=== PATIENT | female | born 1955 | race Caucasian/White ===

== ENCOUNTER → 2024-05-16 | Outpatient (CLI) | payer OTHER, MEDICAID, SELFPAY ==
[2024-05-16 17:52] LABS: BVAG Candida Negative (Negative); Bacterial Vaginosis Markers Negative (Negative); Candida glabrata Negative (Negative); Candida krusei PCR Negative (Negative); Trichomonas Negative (Negative)
== END | disposition home or self-care (01) ==
LOC: SLDO 11:49
PROVIDERS: Referring Provider Specialist; Visit Provider Specialist
DX: B37.89 Other sites of candidiasis (principal); N76.0 Acute vaginitis; A59.01 Trichomonal vulvovaginitis
CPT/HCPCS: 81514

== ENCOUNTER 2024-05-17 13:19 | Outpatient (RCR) | payer OTHER, MEDICAID, SELFPAY | END 2024-05-26 23:59 | disposition home or self-care (01) | LOC: SCTC 13:19 | PROVIDERS: PCP Family Medicine; Referring Provider Family Medicine; Visit Provider Nurse Practitioner Family | DX: Z08 Encounter for follow-up examination after completed treatment for malignant neoplasm (principal); Z85.3 Personal history of malignant neoplasm of breast; Z92.3 Personal history of irradiation; Z92.21 Personal history of antineoplastic chemotherapy; N60.92 Unspecified benign mammary dysplasia of left breast; R91.1 Solitary pulmonary nodule; Z87.891 Personal history of nicotine dependence; I10 Essential (primary) hypertension; Z86.59 Personal history of other mental and behavioral disorders | CPT/HCPCS: 99212; G0463 ==

== ENCOUNTER → 2024-08-29 | Outpatient (CLI) | payer OTHER, MEDICAID, SELFPAY ==
[2024-08-29 13:59] LABS: Collection Type, Urine Clean Catch
[2024-08-29 14:27] LABS: Basophils # (Auto) 0.1 Thou/mm3 (0.0-0.2); Basophils % (Auto) 2 % (0-2.5); Eosinophils # (Auto) 0.4 Thou/mm3 (0.0-0.5); Eosinophils % (Auto) 5 % (0-10); Hematocrit 47.8 % (36.0-46.0); Hemoglobin 16.1 g/dL (12.0-16.0); Immature Granulocytes % (Auto) 0 % (0-0); Immature Granulocytes Auto 0.02 Thou/mm3 (0.00-0.00); Lymphocytes # (Auto) 1.7 Thou/mm3 (1.0-4.8); Lymphocytes % (Auto) 22 % (10-50); Mean Corpuscular HGB Conc 33.7 g/dl (31.0-37.0); Mean Corpuscular Hemoglobin 30.3 pg (25.0-35.0); Mean Corpuscular Volume 90 fL (80-100); Monocytes # (Auto) 0.5 Thou/mm3 (0.0-0.8); Monocytes % (Auto) 7 % (0-12); Neutrophils # (Auto) 4.9 Thou/mm3 (1.8-7.7); Neutrophils % (Auto) 64 % (37-80); Nucleated Red Blood Cell % 0 /100 WBC (0); Platelet Count 210 Thou/mm3 (140-440); RDW Standard Deviation 41.4 fL (36.4-46.3); Red Blood Count 5.31 Miln/mm3 (4.00-5.20); White Blood Count 7.5 Thou/mm3 (3.6-11.0)
[2024-08-29 14:31] LABS: Bilirubin,Urine Negative (Negative); Blood,Urine Negative (Negative); Clarity,Urine Clear (Clear/Hazy); Color,Urine Lt-Yellow (Lt Yel-Yel); Culture Indicated,Urine Not Indicated; Glucose, Urine Negative (Negative); Ketones,Urine Negative (Negative); Leukocyte Esterase,Urine Positive (Negative); Nitrite,Urine Negative (Negative); PH,Urine 5.5 (5.0-7.0); Protein,Urine Negative (Neg - Trace); RBC,Urine 2 /hpf (0-3); Specific Gravity,Urine 1.021 (1.001-1.035); Squamous Epithelial Cell,Urine 1 /hpf (0-5); Urobilinogen,Urine Negative mg/dL (0.0-1.0); WBC,Urine 2 /hpf (0-5)
[2024-08-29 14:55] LABS: Vitamin B12 619 pg/mL (211-911)
[2024-08-29 15:25] LABS: Glucose Estimated Average 97 mg/dL (80-131)
[2024-08-29 15:29] LABS: Iron 155 mcg/dL (50-170); Percent Iron Saturation 47 % (20-55); Total Iron Binding Capacity 324 mcg/dL (250-425); Unsaturated Iron Binding 169 (225-295)
[2024-08-29 15:30] LABS: Alanine Aminotransferase 127 U/L (10-49); Albumin, Serum 4.5 gm/dL (3.4-4.8); Albumin/Globulin Ratio 2.4 (1.2-2.2); Alkaline Phosphatase 147 U/L (46-116); Anion Gap 5 (7-16); Aspartate Amino Transferase 120 U/L (0-34); BUN/Creatinine Ratio 16 Ratio (12-20); Blood Urea Nitrogen 14 mg/dL (9-23); Calcium 10.3 mg/dL (8.3-10.6); Calcium (Corrected) 10.3 mg/dL (8.5-10.1); Carbon Dioxide 30.9 mMol/L (20.0-31.0); Cardiac Risk Estimate 3.6 RATIO (3.7-5.6); Chloride 108 mMol/L (98-107); Cholesterol 225 mg/dL (132-200); Creatinine (Component) 0.9 mg/dL (0.6-1.3); Globulin 1.9 gm/dL (2.3-3.5); Glucose 95 mg/dL (74-106); HDL Cholesterol 62 mg/dL (40-60); LDL Cholesterol,Calculated 135 mg/dL (0-130); Osmolality,Calculated 287 (275-295); Potassium 5.2 mMol/L (3.4-5.1); Sodium 144 mMol/L (136-145); Thyroid Stimulating Hormone 1.95 uIU/mL (0.55-4.78); Total Protein 6.4 gm/dL (5.7-8.2); Triglycerides 140 mg/dL (30-150); eGFR > 60 See Note
== END | disposition home or self-care (01) ==
LOC: COPL 13:14
PROVIDERS: PCP Family Medicine; Referring Provider Nurse Practitioner Family; Visit Provider Registered Nurse
DX: Z00.00 Encounter for general adult medical examination without abnormal findings (principal); C50.512 Malignant neoplasm of lower-outer quadrant of left female breast; C50.112 Malignant neoplasm of central portion of left female breast; I10 Essential (primary) hypertension; R53.82 Chronic fatigue, unspecified; D72.819 Decreased white blood cell count, unspecified
CPT/HCPCS: 36415; 80053; 80061; 81001; 82306; 82607; 83036; 83540; 83550; 84443; 85025

== ENCOUNTER → 2024-09-03 | Outpatient (CLI) | payer OTHER, MEDICAID, SELFPAY ==
[2024-09-07 06:40] LABS: Fecal Globin Result DETECTED (NOT DETECTED)
== END | disposition home or self-care (01) ==
LOC: SLDO 13:45
PROVIDERS: PCP Registered Nurse; Referring Provider Registered Nurse; Visit Provider Registered Nurse
DX: Z12.11 Encounter for screening for malignant neoplasm of colon (principal)
CPT/HCPCS: 82274; G0328

== ENCOUNTER → 2024-09-03 | Outpatient (CLI) | payer OTHER, MEDICAID, SELFPAY ==
--- NOTE | 2024-09-03 13:15 | XR_ITS ---
Examination: Diagnostic digital mammography, unilateral, left Computer aided detection 3-D breast Tomosynthesis, unilateral Date and time of exam: 09/03/2024, 12:59 PM Comparisons: July 2013 through March 2024 Indications: six-month follow-up left focal asymmetry Technique: Nonmagnified MLO, CC views of the left breast have been obtained, reconstructed from 3-D Tomosynthesis images. R2 computer aided detection program utilized for evaluation of suspicious masses and/or abnormal calcifications. 3-D Tomosynthesis images obtained. Technologist: Findings: The breasts are heterogeneously dense, which may obscure small masses. Stable postoperative changes in the left breast. The previously described abnormality does not persist on spot compression views and represents superimposition of normal fibroglandular tissue. No evidence of abnormal masses or suspicious calcifications. Impression: BI-RADS category 1: Negative findings (within normal) Recommend 1 year follow-up mammogram
== END | disposition home or self-care (01) ==
PROVIDERS: PCP Family Medicine; Referring Provider Surgery; Visit Provider Surgery
DX: R92.312 Mammographic fatty tissue density, left breast (principal)
CPT/HCPCS: 77061; 77065; G0279

== ENCOUNTER 2024-09-12 13:02 | Outpatient (RCR) | payer OTHER, MEDICAID, SELFPAY ==
--- NOTE | 2024-10-01 00:39 | CTCFLWUP_ITS ---
Patient: {Patient.NameLPINEDA} : {Admin.Birth_Date} MRN: {Ident.MARSHA} Page 2 of 9 FOLLOW UP NOTE DATE OF SERVICE: 09/12/2024 NAME: {Biju} MRN: {Moira.MARSHA} ACCOUNT: [id number] : {Admin.Birth_Date} AGE: {Admin.Age} INTERVAL HISTORY: Patient is concerned for pain and palpable lesion in the left breast. Patient recently had a mammogram which was negative. 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 She took adjuvant capecitabine for a few months and stopped taking it. 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 S/p ultrasound-guided biopsy (09/10/2021) BRCA 1 and 2 negative. REASON FOR TODAY?S VISIT: This is office follow-up visit. Malignant neoplasm of central portion of left female breast [ICD10] C50.112 DATE OF DIAGNOSIS: 09/03/2021 PATHOLOGY: Triple negative breast cancer STAGE/TNM: Stage I left breast cancer TREATMENT HISTORY: Care?Plan Start?Date Cycle Day Intent DOCEtaxel?75,?Cyclophosphamide?600 03/10/2022 1 21 Curative?(adjuvant) HISTORY OF PRESENT ILLNESS: Ms. Mckinnon is here at [facility]. She is clinically doing well. Left breast ultrasound was negative, 6-month follow-up left mammogram recommended, 04/03/2024. CT of chest done on 02/14/2024 showed stable 13 mm pulmonary nodule left upper lobe, no new pulmonary nodules. Smoking history of 20 years. Denies any complaints or concerns. Denies any cough, chest pain. Ambulating well without any help. Has good appetite and good energy levels. HISTORY: Francoise Mckinnon is a 69-year-old ENG speaking female with history of hypertension as well as depression has the following oncology history. 08/31/2019: Patient had bilateral breast ultrasound for a palpable lump in the upper outer quadrant of the right breast. 02/13/2021: Ms. Mckinnon had repeat bilateral breast ultrasounds? 05/15/2021: Bilateral screening mammograms? 08/24/2021: Repeat bilateral breast ultrasounds showed suspicious mass in the left breast 09/10/2021: Ms. Mckinnon had a left breast biopsy 09/23/2021: Bilateral breast MRI with and without contrast? 10/02/2021: BRCA 1 and 2 negative 12/24/2021: Ms. Mckinnon had lumpectomy and sentinel lymph node biopsy of the left breast lesion? 02/08/2022: 03/10/2022?05/12/2022: The patient is treated with 4 cycles of adjuvant TC chemotherapy. 06/16/2022 - 08/06/2022: Ms. Mckinnon received 6300 cGy radiation therapy to the left breast. 09/25/2023: CT scan of the chest with IV contrast showed 13 mm noncalcified pulmonary nodule in the left upper lobe 01/12/2024: Chest x-ray again showed a 13 mm pulmonary nodule in the left upper lobe. 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 Tobacco?Pack?per?Day:?1 Tobacco?Use?Years:?25 Tobacco?Use:?Quit?20yrs?ago ETOH?Use:?Rarely Drug?Note:?Denies Social?History?Note:?Lives?with?family [place] [facility] HISTORY: Menarche?-?Age:?12 Menopause:?Age?54 :?1 Live?Births:?1 Age?1st?:?25 MEDICATIONS: 1. escitalopram oxalate - 5 mg 1 tab Daily 2. Gas Relief (simethicone) - 125 mg tab As needed 3. loratadine - 10 mg 1 tab Daily 4. Pepcid - 20 mg 1 tab Daily Medications Last Reconciled by Daya Aguirre MA on 09/12/2024 ALLERGIES: Latex, Natural Rubber REVIEW OF SYSTEMS: A complete 14-point review of systems was performed and is negative except as noted in interval history. PHYSICAL EXAMINATION: VITAL SIGNS: Temperature?98.6, B/P?154/88, Oxygen?Saturation?93% Weight?171?lbs PAIN: 0 - No pain ECOG Performance Status: 0 - Asymptomatic and fully active GENERAL APPEARANCE: Appears well, in no apparent distress, appropriately interactive. HEENT: Normocephalic, no temporal wasting, normal conjunctiva, no scleral icterus, normal hearing, lips without lesions, neck normal range of motion. CARDIOVASCULAR: Not assessed. PULMONARY: Normal respiratory effort, no respiratory distress or use of accessory muscles, speaking in full sentences, no tachypnea. EXTREMITIES: No pedal edema or cyanosis. SKIN: Normal skin appearance. NEUROLOGIC: Alert and oriented x4. PSHYCHIATRIC: Appropriate affect, mood normal, behavior normal, intact thought and speech. LABORATORY DATA: I have personally reviewed and interpreted each of the patient?s relevant lab tests, abnormal findings are below: Date 04/06/24 08/29/24 ??WHITE?BLOOD?COUNT?(Thou/mm3) ? 7.5 ??RED?BLOOD?COUNT?(Miln/mm3) ? 5.31?H ??HEMOGLOBIN?(gm/dl) ? 16.1?H ??HEMATOCRIT?(%) ? 47.8?H ??PLATELET?COUNT?(Thou/mm3) ? 210 ??NEUTROPHILS?%,?AUTO?(%) ? 64 ??LYMPH?%,?AUTO?(%) ? 22 ??NEUTROPHILS,?AUTO?(Thou/mm3) ? 4.9 ??GLUCOSE,RANDOM?(mg/dL) ? 95 ??BLOOD?UREA?NITROGEN?(mg/dL) ? 14 ??CREATININE?(mg/dL) ? 0.90 ??SODIUM?(mmol/L) ? 144 ??POTASSIUM?(mmol/L) ? 5.2?H ??CHLORIDE?(mmol/L) ? 108?H ??CrCl?(CandG)?(ml/min) ? 55.72 ??AST/SGOT?(Unit/L) 240?H 120?H ??ALT/SGPT?(Unit/L) 244?H 127?H ??ALKALINE?PHOSPHATASE?(Unit/L) 205?H 147?H ??BILIRUBIN,?TOTAL?(mg/dL) 1.0 1.0 ??PROTEIN?TOTAL?(gm/dl) 6.6 6.4 ??ALBUMIN,?SERUM?(gm/dl) 4.5 4.5 ??GLOBULIN?(gm/dl) ? 1.9?L ??ALBUMIN/GLOBULIN?RATIO ? 2.4?H ??CALCIUM,?SERUM?(mg/dL) ? 10.3 ??CALCIUM?SERUM?(CORRECTED)?(mg/dL) ? 10.3?H ??TOTAL?IRON?BINDING?CAP?(S*)?(mcg/dL) ? 324 ??UNBOUND?IBC?(mcg/dL) ? 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 S/p lumpectomy and sentinel lymph node biopsy (12/24/2021 no residual invasive carcinoma in the surgical pathology specimen S/p adjuvant radiation therapy to the left breast (06/16/2022 - 08/06/2022) S/p 4 cycles of TC chemotherapy (03/10/2022-05/12/2022). She took adjuvant capecitabine for a few months and stopped taking it. 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 S/p ultrasound-guided biopsy (09/10/2021) Atypical ductal hyperplasia of the right breast, s/p right breast vertical mammoplasty for cosmetic outcome ORDERS: Order # Description [id number] Initial PET/CT of Skull to Mid-Thigh [id number] Comprehensive Metabolic Panel - 12 + CBC with Auto Diff + CEA + CA 15-3 [id number] MD Follow Up 4 Week [id number] MRI + With Contrast [id number] Will get PET CT scan to evaluate for recurrence Will get MRI liver as have transaminitis. Patient does not take any kind of drugs including alcohol will get MRD testing for Residual breast cancer or recurrence RETURN TO CLINIC: 4 weeks BILLING AND COMPLIANCE: I reviewed external records from providers outside my specialty as summarized above. I spent a total of 50 minutes on this patient?s care on the day of their visit excluding time spent related to any billed procedures. This time includes time spent with the patient as well as time spent documenting in the medical record, reviewing patients records and tests, obtaining history, placing orders, communicating with other healthcare professionals, counseling the patient, family or caregiver, and/or care coordination for the diagnoses above. Electronically Signed by: Cedric Rubio MD T: 12:36 AM CC: PCP: {Admin.Pri__ID*[email or web address]@} Referring: {Admin.Ref_MD_ID*[email or web address]@} This document was completed utilizing speech recognition software. Grammatical errors, random word insertions, pronoun errors, and incomplete sentences are an occasional consequence of this system due to software limitations, ambient noise, and hardware issues. Any formal questions or concerns about the content, text or information contained within the body of this dictation should be directly addressed to the provider for clarification.
== END 2024-09-24 23:59 | disposition home or self-care (01) ==
LOC: SCTC 13:02
PROVIDERS: PCP Registered Nurse; Referring Provider Registered Nurse; Visit Provider Internal Medicine Hematology & Oncology
DX: C50.512 Malignant neoplasm of lower-outer quadrant of left female breast (principal); Z17.421 Hormone receptor negative with human epidermal growth factor receptor 2 negative status; Z90.12 Acquired absence of left breast and nipple; N60.91 Unspecified benign mammary dysplasia of right breast; Z92.3 Personal history of irradiation
CPT/HCPCS: 99212; G0463

== ENCOUNTER → 2024-10-18 | Outpatient (CLI) | payer OTHER, MEDICAID, SELFPAY ==
[2024-10-18 10:50] LABS: Basophils # (Auto) 0.1 Thou/mm3 (0.0-0.2); Basophils % (Auto) 2 % (0-2.5); Eosinophils # (Auto) 0.3 Thou/mm3 (0.0-0.5); Eosinophils % (Auto) 4 % (0-10); Hematocrit 48.5 % (36.0-46.0); Hemoglobin 16.6 g/dL (12.0-16.0); Immature Granulocytes % (Auto) 0 % (0-0); Immature Granulocytes Auto 0.02 Thou/mm3 (0.00-0.00); Lymphocytes # (Auto) 1.5 Thou/mm3 (1.0-4.8); Lymphocytes % (Auto) 21 % (10-50); Mean Corpuscular HGB Conc 34.2 g/dl (31.0-37.0); Mean Corpuscular Hemoglobin 30.8 pg (25.0-35.0); Mean Corpuscular Volume 90 fL (80-100); Monocytes # (Auto) 0.5 Thou/mm3 (0.0-0.8); Monocytes % (Auto) 7 % (0-12); Neutrophils # (Auto) 4.6 Thou/mm3 (1.8-7.7); Neutrophils % (Auto) 66 % (37-80); Nucleated Red Blood Cell % 0 /100 WBC (0); Platelet Count 231 Thou/mm3 (140-440); RDW Standard Deviation 40.9 fL (36.4-46.3); Red Blood Count 5.39 Miln/mm3 (4.00-5.20); White Blood Count 6.9 Thou/mm3 (3.6-11.0)
[2024-10-18 11:20] LABS: CA 15-3 11.6 U/mL (<32.4); Carcinoembryonic Antigen 1.5 ng/mL (0.0-5.0)
[2024-10-18 11:30] LABS: Alanine Aminotransferase 20 U/L (10-49); Albumin, Serum 4.7 gm/dL (3.4-4.8); Alkaline Phosphatase 138 U/L (46-116); Anion Gap 6 (7-16); Aspartate Amino Transferase 24 U/L (0-34); BUN/Creatinine Ratio 17 Ratio (12-20); Bilirubin,Total 0.9 mg/dL (0.3-1.2); Blood Urea Nitrogen 15 mg/dL (9-23); Calcium 9.8 mg/dL (8.3-10.6); Calcium (Corrected) 9.8 mg/dL (8.5-10.1); Carbon Dioxide 27.9 mMol/L (20.0-31.0); Chloride 107 mMol/L (98-107); Creatinine (Component) 0.9 mg/dL (0.6-1.3); Globulin 2.3 gm/dL (2.3-3.5); Glucose 93 mg/dL (74-106); Osmolality,Calculated 282 (275-295); Potassium 4.5 mMol/L (3.4-5.1); Sodium 141 mMol/L (136-145); eGFR > 60 See Note
== END | disposition home or self-care (01) ==
LOC: SCTO 09:26
PROVIDERS: PCP Family Medicine; Referring Provider Internal Medicine Hematology & Oncology; Visit Provider Internal Medicine Hematology & Oncology
DX: C50.512 Malignant neoplasm of lower-outer quadrant of left female breast (principal); C50.112 Malignant neoplasm of central portion of left female breast
CPT/HCPCS: 36415; 80053; 82378; 85025; 86300

== ENCOUNTER → 2024-10-22 | Outpatient (CLI) | payer OTHER, MEDICAID, SELFPAY ==
[2024-10-22 08:52] LABS: Misc Send Out* See Sep Rpt
[2024-10-22 08:59] LABS: Collection Type, Urine Clean Catch
[2024-10-22 09:19] LABS: Basophils # (Auto) 0.1 Thou/mm3 (0.0-0.2); Basophils % (Auto) 1 % (0-2.5); Eosinophils # (Auto) 0.4 Thou/mm3 (0.0-0.5); Eosinophils % (Auto) 5 % (0-10); Hematocrit 48.9 % (36.0-46.0); Hemoglobin 16.7 g/dL (12.0-16.0); Immature Granulocytes % (Auto) 0 % (0-0); Immature Granulocytes Auto 0.03 Thou/mm3 (0.00-0.00); Lymphocytes # (Auto) 1.2 Thou/mm3 (1.0-4.8); Lymphocytes % (Auto) 17 % (10-50); Mean Corpuscular HGB Conc 34.2 g/dl (31.0-37.0); Mean Corpuscular Hemoglobin 30.7 pg (25.0-35.0); Mean Corpuscular Volume 90 fL (80-100); Monocytes # (Auto) 0.6 Thou/mm3 (0.0-0.8); Monocytes % (Auto) 8 % (0-12); Neutrophils # (Auto) 4.9 Thou/mm3 (1.8-7.7); Neutrophils % (Auto) 68 % (37-80); Nucleated Red Blood Cell % 0 /100 WBC (0); Platelet Count 244 Thou/mm3 (140-440); RDW Standard Deviation 40.3 fL (36.4-46.3); Red Blood Count 5.44 Miln/mm3 (4.00-5.20); White Blood Count 7.1 Thou/mm3 (3.6-11.0)
[2024-10-22 09:27] LABS: Bilirubin,Urine Negative (Negative); Blood,Urine Negative (Negative); Clarity,Urine Clear (Clear/Hazy); Color,Urine Yellow (Lt Yel-Yel); Culture Indicated,Urine Not Indicated; Glucose, Urine Negative (Negative); Ketones,Urine Negative (Negative); Leukocyte Esterase,Urine Positive (Negative); Nitrite,Urine Negative (Negative); PH,Urine 5.5 (5.0-7.0); Protein,Urine Negative (Neg - Trace); RBC,Urine 7 /hpf (0-3); Specific Gravity,Urine 1.026 (1.001-1.035); Squamous Epithelial Cell,Urine 4 /hpf (0-5); Urobilinogen,Urine Negative mg/dL (0.0-1.0); WBC,Urine 2 /hpf (0-5)
[2024-10-22 09:34] LABS: Alanine Aminotransferase 225 U/L (10-49); Albumin, Serum 4.5 gm/dL (3.4-4.8); Albumin/Globulin Ratio 1.9 (1.2-2.2); Alkaline Phosphatase 209 U/L (46-116); Anion Gap 7 (7-16); Aspartate Amino Transferase 237 U/L (0-34); BUN/Creatinine Ratio 17 Ratio (12-20); Bilirubin,Total 1.1 mg/dL (0.3-1.2); Blood Urea Nitrogen 15 mg/dL (9-23); Calcium 9.8 mg/dL (8.3-10.6); Calcium (Corrected) 9.8 mg/dL (8.5-10.1); Carbon Dioxide 28.7 mMol/L (20.0-31.0); Cardiac Risk Estimate 4.6 RATIO (3.7-5.6); Chloride 106 mMol/L (98-107); Cholesterol 259 mg/dL (132-200); Creatinine (Component) 0.9 mg/dL (0.6-1.3); Globulin 2.4 gm/dL (2.3-3.5); Glucose 106 mg/dL (74-106); HDL Cholesterol 56 mg/dL (40-60); LDL Cholesterol,Calculated 176 mg/dL (0-130); Osmolality,Calculated 283 (275-295); Potassium 4.3 mMol/L (3.4-5.1); Sodium 142 mMol/L (136-145); Thyroid Stimulating Hormone 2.41 uIU/mL (0.55-4.78); Total Protein 6.9 gm/dL (5.7-8.2); Triglycerides 135 mg/dL (30-150); eGFR > 60 See Note
[2024-10-22 09:43] LABS: Iron 123 mcg/dL (50-170); Percent Iron Saturation 38 % (20-55); Total Iron Binding Capacity 322 mcg/dL (250-425); Unsaturated Iron Binding 199 (225-295)
[2024-10-22 09:47] LABS: Vitamin B12 940 pg/mL (211-911); Vitamin D 25 Hydroxy Total 42.6 ng/mL (7.3-40.2)
[2024-10-22 09:52] LABS: Glucose Estimated Average 100 mg/dL (80-131); Hemoglobin A1C 5.1 % Hgb (4.8-6.0)
== END | disposition home or self-care (01) ==
LOC: COPL 08:19
PROVIDERS: PCP Family Medicine; Referring Provider Internal Medicine Hematology & Oncology; Visit Provider Registered Nurse
DX: C50.112 Malignant neoplasm of central portion of left female breast (principal); C50.512 Malignant neoplasm of lower-outer quadrant of left female breast; D72.819 Decreased white blood cell count, unspecified; I10 Essential (primary) hypertension; R53.82 Chronic fatigue, unspecified; Z00.00 Encounter for general adult medical examination without abnormal findings; Z68.31 Body mass index [BMI] 31.0-31.9, adult
CPT/HCPCS: 36415; 80053; 80061; 81001; 82306; 82533; 82607; 83036; 83540; 83550; 84443; 85025

== ENCOUNTER 2024-10-24 14:08 | Outpatient (RCR) | payer OTHER, MEDICAID, SELFPAY | END 2024-10-24 23:59 | disposition home or self-care (01) | LOC: SCTC 14:08 | PROVIDERS: PCP Family Medicine; Referring Provider Family Medicine; Visit Provider Nurse Practitioner Family | DX: C50.512 Malignant neoplasm of lower-outer quadrant of left female breast (principal); Z17.421 Hormone receptor negative with human epidermal growth factor receptor 2 negative status; Z92.3 Personal history of irradiation; Z92.21 Personal history of antineoplastic chemotherapy; N60.91 Unspecified benign mammary dysplasia of right breast; Z90.13 Acquired absence of bilateral breasts and nipples | CPT/HCPCS: 99212; G0463 ==

== ENCOUNTER → 2024-11-10 | Outpatient (CLI) | payer OTHER, MEDICAID, SELFPAY ==
--- NOTE | 2024-11-10 14:00 | XR_ITS ---
Examination: MRI abdomen with intravenous contrast TECHNIQUE: Multiple axial coronal MR abdomen images post intravenous administration 19 cc gadolinium, Date and time: November 10, [address] chest February 14, 2024, CT abdomen September 25, 2023 INDICATIONS: Diagnosis malignant neoplasm lower outer quadrant left female breast, central portion left femur breast, patient states middle and right upper abdomen pain and tenderness, left axilla tender 1 year FINDINGS: No focal liver lesions Spleen is not enlarged Absent gallbladder. No extrahepatic biliary tract dilatation No pancreatic mass Normal adrenal glands. No renal or ureteral calculi, no hydronephrosis Aorta is not enlarged No abdominal lymphadenopathy No ascites Adequate marrow signal visualized osseous structures IMPRESSION: No focal liver lesions No abdominal lymphadenopathy Negative for ascites
== END | disposition home or self-care (01) ==
LOC: SMRI 13:22
PROVIDERS: PCP Family Medicine; Referring Provider Internal Medicine Hematology & Oncology; Visit Provider Internal Medicine Hematology & Oncology
DX: C50.512 Malignant neoplasm of lower-outer quadrant of left female breast (principal); C50.112 Malignant neoplasm of central portion of left female breast
CPT/HCPCS: 74182; A9579

== ENCOUNTER → 2024-11-15 | Outpatient (CLI) | payer OTHER, MEDICAID, SELFPAY ==
--- NOTE | 2024-11-15 08:45 | XR_ITS ---
EXAMINATION: PET/CT FUSION SKULL TO THIGH EXAM DATE AND TIME: November 15, 2024 0940 hours Comparison MR abdomen November 10, 2024, CT chest February 14, 2024, CT abdomen pelvis September 25, 2023 INDICATIONS: Diagnosis breast cancer restaging post treatment CTDI:vol (mGy) 6.4 DLP: (mGycm) 584.57 PROCEDURE: 15.1 mCi FDG was administered intravenously To allow for distribution and uptake of radiotracer, the patient was allowed to rest quietly in a shielded room. Imaging was performed on an integrated 16-slice PET/CT scanner, with scanning from the skull base to the mid thigh. Serum blood glucose at the time of the injection was measured 118 mg/dL. CT scanning was performed without oral or intravenous contrast material. FINDINGS: Head and Neck: There is no leonora hypermetabolism in the neck. The visualized portions of the brain are normal in appearance on CT. Chest: Left axillary surgical clips No mediastinal lymphadenopathy No breast mass lesion no chest wall lesion no axillary lymphadenopathy No pulmonary parenchymal nodules Abdomen and Pelvis: There is no leonora hypermetabolism in retroperitoneal or pelvic chains. The spleen is normal in size and FDG avidity. Musculoskeletal: Marrow uptake is within normal range. IMPRESSION: No interval metastatic disease
== END | disposition home or self-care (01) ==
PROVIDERS: PCP Family Medicine; Referring Provider Internal Medicine Hematology & Oncology; Visit Provider Internal Medicine Hematology & Oncology
DX: C50.512 Malignant neoplasm of lower-outer quadrant of left female breast (principal); C50.112 Malignant neoplasm of central portion of left female breast
CPT/HCPCS: 78815; A9552

== ENCOUNTER → 2024-11-23 | Outpatient (CLI) | payer OTHER, MEDICAID, SELFPAY ==
[2024-11-23 12:44] LABS: Basophils # (Auto) 0.2 Thou/mm3 (0.0-0.2); Basophils % (Auto) 2 % (0-2.5); Eosinophils # (Auto) 0.4 Thou/mm3 (0.0-0.5); Eosinophils % (Auto) 4 % (0-10); Hematocrit 48.6 % (36.0-46.0); Hemoglobin 16.6 g/dL (12.0-16.0); Immature Granulocytes % (Auto) 0 % (0-0); Immature Granulocytes Auto 0.02 Thou/mm3 (0.00-0.00); Lymphocytes # (Auto) 1.9 Thou/mm3 (1.0-4.8); Lymphocytes % (Auto) 24 % (10-50); Mean Corpuscular HGB Conc 34.2 g/dl (31.0-37.0); Mean Corpuscular Hemoglobin 30.4 pg (25.0-35.0); Mean Corpuscular Volume 89 fL (80-100); Monocytes # (Auto) 0.6 Thou/mm3 (0.0-0.8); Monocytes % (Auto) 8 % (0-12); Neutrophils # (Auto) 4.9 Thou/mm3 (1.8-7.7); Neutrophils % (Auto) 61 % (37-80); Nucleated Red Blood Cell % 0 /100 WBC (0); Platelet Count 207 Thou/mm3 (140-440); RDW Standard Deviation 40.4 fL (36.4-46.3); Red Blood Count 5.46 Miln/mm3 (4.00-5.20)
[2024-11-23 12:58] LABS: Alanine Aminotransferase 21 U/L (10-49); Albumin, Serum 4.5 gm/dL (3.4-4.8); Albumin/Globulin Ratio 2.3 (1.2-2.2); Alkaline Phosphatase 136 U/L (46-116); Anion Gap 10 (7-16); Aspartate Amino Transferase 23 U/L (0-34); BUN/Creatinine Ratio 18 Ratio (12-20); Bilirubin,Total 0.8 mg/dL (0.3-1.2); Blood Urea Nitrogen 18 mg/dL (9-23); Calcium 9.4 mg/dL (8.3-10.6); Calcium (Corrected) 9.4 mg/dL (8.5-10.1); Carbon Dioxide 28.3 mMol/L (20.0-31.0); Chloride 105 mMol/L (98-107); Glucose 100 mg/dL (74-106); Osmolality,Calculated 286 (275-295); Potassium 4.6 mMol/L (3.4-5.1); Sodium 143 mMol/L (136-145); Total Protein 6.5 gm/dL (5.7-8.2); eGFR > 60 See Note
== END | disposition home or self-care (01) ==
LOC: SCTO 11:41
PROVIDERS: PCP Family Medicine; Referring Provider Nurse Practitioner Family; Visit Provider Nurse Practitioner Family
DX: C50.112 Malignant neoplasm of central portion of left female breast (principal); C50.512 Malignant neoplasm of lower-outer quadrant of left female breast
CPT/HCPCS: 36415; 80053; 85025

== ENCOUNTER → 2024-12-14 | Outpatient (CLI) | payer OTHER, MEDICAID, SELFPAY ==
[2024-12-14 11:33] LABS: Misc Send Out* See Sep Rpt
[2024-12-14 12:10] LABS: Basophils # (Auto) 0.1 Thou/mm3 (0.0-0.2); Basophils % (Auto) 2 % (0-2.5); Eosinophils # (Auto) 0.4 Thou/mm3 (0.0-0.5); Eosinophils % (Auto) 5 % (0-10); Hematocrit 45.7 % (36.0-46.0); Hemoglobin 15.5 g/dL (12.0-16.0); Immature Granulocytes % (Auto) 0 % (0-0); Immature Granulocytes Auto 0.02 Thou/mm3 (0.00-0.00); Lymphocytes # (Auto) 1.4 Thou/mm3 (1.0-4.8); Lymphocytes % (Auto) 22 % (10-50); Mean Corpuscular HGB Conc 33.9 g/dl (31.0-37.0); Mean Corpuscular Hemoglobin 30.6 pg (25.0-35.0); Mean Corpuscular Volume 90 fL (80-100); Monocytes # (Auto) 0.6 Thou/mm3 (0.0-0.8); Monocytes % (Auto) 8 % (0-12); Neutrophils # (Auto) 4.1 Thou/mm3 (1.8-7.7); Neutrophils % (Auto) 62 % (37-80); Nucleated Red Blood Cell % 0 /100 WBC (0); Platelet Count 192 Thou/mm3 (140-440); RDW Standard Deviation 41.9 fL (36.4-46.3); Red Blood Count 5.06 Miln/mm3 (4.00-5.20); White Blood Count 6.6 Thou/mm3 (3.6-11.0)
[2024-12-14 12:24] LABS: Alanine Aminotransferase 17 U/L (10-49); Albumin, Serum 4.2 gm/dL (3.4-4.8); Albumin/Globulin Ratio 2.2 (1.2-2.2); Alkaline Phosphatase 123 U/L (46-116); Anion Gap 5 (7-16); Aspartate Amino Transferase 21 U/L (0-34); BUN/Creatinine Ratio 17 Ratio (12-20); Bilirubin,Total 0.9 mg/dL (0.3-1.2); Blood Urea Nitrogen 15 mg/dL (9-23); Calcium 9.3 mg/dL (8.3-10.6); Calcium (Corrected) 9.3 mg/dL (8.5-10.1); Carbon Dioxide 27.9 mMol/L (20.0-31.0); Chloride 108 mMol/L (98-107); Creatinine (Component) 0.9 mg/dL (0.6-1.3); Globulin 1.9 gm/dL (2.3-3.5); Glucose 96 mg/dL (74-106); Osmolality,Calculated 282 (275-295); Potassium 3.9 mMol/L (3.4-5.1); Sodium 141 mMol/L (136-145); Total Protein 6.1 gm/dL (5.7-8.2); eGFR > 60 See Note
[2024-12-19 15:36] LABS: BCR-ABL1 Source BLOOD
[2024-12-20 06:58] LABS: Erythropoietin (EPO)* 6.5 mIU/mL (2.6-18.5); P190 BCR-ABL1 NOT DETECTED; P210 BCR-ABL1 NOT DETECTED
== END | disposition home or self-care (01) ==
LOC: COPL 11:10 → SCTO 11:19
PROVIDERS: PCP Family Medicine; Referring Provider Nurse Practitioner Family; Visit Provider Nurse Practitioner Family
DX: C50.512 Malignant neoplasm of lower-outer quadrant of left female breast (principal); C50.112 Malignant neoplasm of central portion of left female breast
CPT/HCPCS: 36415; 80053; 81206; 82668; 85025

== ENCOUNTER 2024-12-19 13:59 | Outpatient (RCR) | payer OTHER, MEDICAID, SELFPAY | END 2024-12-24 23:59 | disposition home or self-care (01) | LOC: SCTC 13:59 | PROVIDERS: PCP Family Medicine; Referring Provider Family Medicine; Visit Provider Nurse Practitioner Family | DX: C50.512 Malignant neoplasm of lower-outer quadrant of left female breast (principal); Z17.421 Hormone receptor negative with human epidermal growth factor receptor 2 negative status; K76.0 Fatty (change of) liver, not elsewhere classified; Z90.12 Acquired absence of left breast and nipple | CPT/HCPCS: 99212; G0463 ==

== ENCOUNTER → 2025-03-06 | Outpatient (CLI) | payer OTHER, MEDICAID, SELFPAY ==
[2025-03-06 13:23] LABS: Basophils # (Auto) 0.1 Thou/mm3 (0.0-0.2); Basophils % (Auto) 2 % (0-2.5); Eosinophils # (Auto) 0.4 Thou/mm3 (0.0-0.5); Eosinophils % (Auto) 6 % (0-10); Hematocrit 49.1 % (36.0-46.0); Hemoglobin 16.6 g/dL (12.0-16.0); Immature Granulocytes Auto 0.03 Thou/mm3 (0.00-0.00); Lymphocytes # (Auto) 1.4 Thou/mm3 (1.0-4.8); Lymphocytes % (Auto) 19 % (10-50); Mean Corpuscular HGB Conc 33.8 g/dl (31.0-37.0); Mean Corpuscular Hemoglobin 30.6 pg (25.0-35.0); Mean Corpuscular Volume 90 fL (80-100); Monocytes # (Auto) 0.6 Thou/mm3 (0.0-0.8); Monocytes % (Auto) 8 % (0-12); Neutrophils # (Auto) 4.7 Thou/mm3 (1.8-7.7); Neutrophils % (Auto) 65 % (37-80); Nucleated Red Blood Cell # 0.00 Thou/mm3 (0.00-0.00); Nucleated Red Blood Cell % 0 /100 WBC (0); Platelet Count 195 Thou/mm3 (140-440); RDW Standard Deviation 41.8 fL (36.4-46.3); Red Blood Count 5.43 Miln/mm3 (4.00-5.20); White Blood Count 7.3 Thou/mm3 (3.6-11.0)
[2025-03-06 13:28] LABS: INR 1.0 (0.9-1.3); Prothrombin Time 11.1 Seconds (9.0-12.2)
[2025-03-06 13:43] LABS: Alanine Aminotransferase 18 U/L (10-49); Albumin, Serum 4.4 gm/dL (3.4-4.8); Albumin/Globulin Ratio 2.3 (1.2-2.2); Alkaline Phosphatase 128 U/L (46-116); Anion Gap 9 (7-16); Aspartate Amino Transferase 22 U/L (0-34); BUN/Creatinine Ratio 11 Ratio (12-20); Bilirubin,Total 1.0 mg/dL (0.3-1.2); Blood Urea Nitrogen 10 mg/dL (9-23); Calcium 9.9 mg/dL (8.3-10.6); Calcium (Corrected) 9.9 mg/dL (8.5-10.1); Carbon Dioxide 28.5 mMol/L (20.0-31.0); Chloride 106 mMol/L (98-107); Creatinine (Component) 0.9 mg/dL (0.6-1.3); Globulin 1.9 gm/dL (2.3-3.5); Glucose 94 mg/dL (74-106); Osmolality,Calculated 283 (275-295); Potassium 4.4 mMol/L (3.4-5.1); Sodium 143 mMol/L (136-145); Total Protein 6.3 gm/dL (5.7-8.2); eGFR > 60 See Note
== END | disposition home or self-care (01) ==
PROVIDERS: PCP Family Medicine; Referring Provider Internal Medicine Gastroenterology; Visit Provider Internal Medicine Gastroenterology
DX: K21.00 Gastro-esophageal reflux disease with esophagitis, without bleeding (principal); R17 Unspecified jaundice
CPT/HCPCS: 36415; 80053; 85025; 85610

== ENCOUNTER → 2025-03-22 | Outpatient (CLI) | payer OTHER, MEDICAID, SELFPAY ==
--- NOTE | 2025-03-22 10:45 | XR_ITS ---
Examination: Screening digital mammography, bilateral Computer aided detection 3-D breast Tomosynthesis, bilateral Date and time of exam: March 22, 2025, 1031 hours, compared to mammograms dating to November 17, 2015 Indication: Screening Technique: Nonmagnified MLO, CC views of the breasts to been obtained, reconstructed from 3-D Tomosynthesis images. R2 computer aided detection program utilized for evaluation of suspicious masses and/or abnormal calcifications. 3-D Tomosynthesis images obtained. Findings: The breasts are heterogeneously dense, which may obscure small masses Surgical clips upper outer left breast with architectural distortion consistent with patient's history treated left breast cancer Impression: BI-RADS category II: Benign Findings. Recommend 1 year follow-up mammogram. Given the patient's personal history breast cancer, consider baseline bilateral breast sonography follow-up
== END | disposition home or self-care (01) ==
PROVIDERS: PCP Family Medicine; Referring Provider Nurse Practitioner Family; Visit Provider Nurse Practitioner Family
DX: Z12.31 Encounter for screening mammogram for malignant neoplasm of breast (principal); R92.323 Mammographic fibroglandular density, bilateral breasts; Z85.3 Personal history of malignant neoplasm of breast
CPT/HCPCS: 77063; 77067

== ENCOUNTER → 2025-04-22 | Outpatient (CLI) | payer OTHER, MEDICAID, SELFPAY ==
[2025-04-22 16:06] LABS: Basophils # (Auto) 0.1 Thou/mm3 (0.0-0.2); Basophils % (Auto) 2 % (0-2.5); Eosinophils # (Auto) 0.4 Thou/mm3 (0.0-0.5); Eosinophils % (Auto) 5 % (0-10); Hematocrit 48.0 % (36.0-46.0); Hemoglobin 16.2 g/dL (12.0-16.0); Immature Granulocytes Auto 0.03 Thou/mm3 (0.00-0.00); Lymphocytes # (Auto) 1.4 Thou/mm3 (1.0-4.8); Lymphocytes % (Auto) 18 % (10-50); Mean Corpuscular HGB Conc 33.8 g/dl (31.0-37.0); Mean Corpuscular Hemoglobin 30.5 pg (25.0-35.0); Mean Corpuscular Volume 90 fL (80-100); Monocytes # (Auto) 0.6 Thou/mm3 (0.0-0.8); Monocytes % (Auto) 8 % (0-12); Neutrophils # (Auto) 5.2 Thou/mm3 (1.8-7.7); Neutrophils % (Auto) 67 % (37-80); Nucleated Red Blood Cell # 0.00 Thou/mm3 (0.00-0.00); Nucleated Red Blood Cell % 0 /100 WBC (0); Platelet Count 200 Thou/mm3 (140-440); RDW Standard Deviation 41.3 fL (36.4-46.3); Red Blood Count 5.31 Miln/mm3 (4.00-5.20); White Blood Count 7.9 Thou/mm3 (3.6-11.0)
[2025-04-22 16:22] LABS: Alanine Aminotransferase 19 U/L (10-49); Albumin, Serum 4.8 gm/dL (3.4-4.8); Albumin/Globulin Ratio 3.0 (1.2-2.2); Alkaline Phosphatase 113 U/L (46-116); Anion Gap 10 (7-16); Aspartate Amino Transferase 25 U/L (0-34); BUN/Creatinine Ratio 13 Ratio (12-20); Bilirubin,Total 0.8 mg/dL (0.3-1.2); Blood Urea Nitrogen 12 mg/dL (9-23); Calcium 9.4 mg/dL (8.3-10.6); Calcium (Corrected) 9.4 mg/dL (8.5-10.1); Carbon Dioxide 26.7 mMol/L (20.0-31.0); Chloride 107 mMol/L (98-107); Creatinine (Component) 0.9 mg/dL (0.6-1.3); Globulin 1.6 gm/dL (2.3-3.5); Glucose 118 mg/dL (74-106); Osmolality,Calculated 287 (275-295); Potassium 4.2 mMol/L (3.4-5.1); Sodium 144 mMol/L (136-145); Total Protein 6.4 gm/dL (5.7-8.2); eGFR > 60 See Note
[2025-04-22 16:37] LABS: CA 15-3 11.8 U/mL (<32.4); Carcinoembryonic Antigen 1.4 ng/mL (0.0-5.0)
== END | disposition home or self-care (01) ==
LOC: SCTO 15:11
PROVIDERS: PCP Family Medicine; Referring Provider Nurse Practitioner Family; Visit Provider Nurse Practitioner Family
DX: C50.512 Malignant neoplasm of lower-outer quadrant of left female breast (principal); C50.112 Malignant neoplasm of central portion of left female breast
CPT/HCPCS: 36415; 80053; 82378; 85025; 86300

== ENCOUNTER 2025-04-29 12:59 | Outpatient (RCR) | payer OTHER, MEDICAID, SELFPAY | END 2025-05-26 23:59 | disposition home or self-care (01) | LOC: SCTC 12:59 | PROVIDERS: PCP Family Medicine; Referring Provider Family Medicine; Visit Provider Nurse Practitioner Family | DX: C50.512 Malignant neoplasm of lower-outer quadrant of left female breast (principal); Z17.421 Hormone receptor negative with human epidermal growth factor receptor 2 negative status; Z90.12 Acquired absence of left breast and nipple; K76.0 Fatty (change of) liver, not elsewhere classified; R71.8 Other abnormality of red blood cells | CPT/HCPCS: 99212; G0463 ==

== ENCOUNTER → 2025-06-03 | Outpatient (CLI) | payer OTHER, MEDICAID, SELFPAY ==
[2025-06-03 15:09] LABS: Basophils # (Auto) 0.1 Thou/mm3 (0.0-0.2); Basophils % (Auto) 2 % (0-2.5); Eosinophils # (Auto) 0.4 Thou/mm3 (0.0-0.5); Eosinophils % (Auto) 5 % (0-10); Hematocrit 48.9 % (36.0-46.0); Hemoglobin 16.0 g/dL (12.0-16.0); Immature Granulocytes Auto 0.03 Thou/mm3 (0.00-0.00); Lymphocytes # (Auto) 1.8 Thou/mm3 (1.0-4.8); Lymphocytes % (Auto) 24 % (10-50); Mean Corpuscular HGB Conc 32.7 g/dl (31.0-37.0); Mean Corpuscular Hemoglobin 29.7 pg (25.0-35.0); Mean Corpuscular Volume 91 fL (80-100); Monocytes # (Auto) 0.6 Thou/mm3 (0.0-0.8); Monocytes % (Auto) 8 % (0-12); Neutrophils # (Auto) 4.5 Thou/mm3 (1.8-7.7); Neutrophils % (Auto) 60 % (37-80); Nucleated Red Blood Cell # 0.00 Thou/mm3 (0.00-0.00); Nucleated Red Blood Cell % 0 /100 WBC (0); Platelet Count 214 Thou/mm3 (140-440); RDW Standard Deviation 43.7 fL (36.4-46.3); Red Blood Count 5.39 Miln/mm3 (4.00-5.20); White Blood Count 7.4 Thou/mm3 (3.6-11.0)
[2025-06-03 15:26] LABS: Alanine Aminotransferase 16 U/L (10-49); Albumin, Serum 4.4 gm/dL (3.4-4.8); Albumin/Globulin Ratio 2.0 (1.2-2.2); Alkaline Phosphatase 102 U/L (46-116); Anion Gap 7 (7-16); Aspartate Amino Transferase 21 U/L (0-34); BUN/Creatinine Ratio 15 Ratio (12-20); Bilirubin,Total 0.6 mg/dL (0.3-1.2); Blood Urea Nitrogen 15 mg/dL (9-23); Calcium 9.6 mg/dL (8.3-10.6); Calcium (Corrected) 9.6 mg/dL (8.5-10.1); Carbon Dioxide 31.6 mMol/L (20.0-31.0); Chloride 106 mMol/L (98-107); Creatinine (Component) 1.0 mg/dL (0.6-1.3); Globulin 2.2 gm/dL (2.3-3.5); Glucose 98 mg/dL (74-106); Osmolality,Calculated 289 (275-295); Potassium 4.9 mMol/L (3.4-5.1); Sodium 145 mMol/L (136-145); Total Protein 6.6 gm/dL (5.7-8.2); eGFR > 60 See Note
== END | disposition home or self-care (01) ==
LOC: SCTO 14:12
PROVIDERS: PCP Family Medicine; Referring Provider Nurse Practitioner Family; Visit Provider Nurse Practitioner Family
DX: C50.512 Malignant neoplasm of lower-outer quadrant of left female breast (principal); C50.112 Malignant neoplasm of central portion of left female breast
CPT/HCPCS: 36415; 80053; 85025

== ENCOUNTER → 2025-06-17 | Outpatient (CLI) | payer OTHER, MEDICAID, SELFPAY ==
[2025-06-17 14:19] LABS: Basophils # (Auto) 0.1 Thou/mm3 (0.0-0.2); Basophils % (Auto) 1 % (0-2.5); Eosinophils # (Auto) 0.5 Thou/mm3 (0.0-0.5); Eosinophils % (Auto) 6 % (0-10); Hematocrit 42.3 % (36.0-46.0); Hemoglobin 14.3 g/dL (12.0-16.0); Immature Granulocytes Auto 0.03 Thou/mm3 (0.00-0.00); Lymphocytes # (Auto) 1.6 Thou/mm3 (1.0-4.8); Lymphocytes % (Auto) 22 % (10-50); Mean Corpuscular HGB Conc 33.8 g/dl (31.0-37.0); Mean Corpuscular Hemoglobin 30.0 pg (25.0-35.0); Mean Corpuscular Volume 89 fL (80-100); Monocytes # (Auto) 0.5 Thou/mm3 (0.0-0.8); Monocytes % (Auto) 7 % (0-12); Neutrophils # (Auto) 4.4 Thou/mm3 (1.8-7.7); Neutrophils % (Auto) 62 % (37-80); Nucleated Red Blood Cell # 0.00 Thou/mm3 (0.00-0.00); Nucleated Red Blood Cell % 0 /100 WBC (0); Platelet Count 212 Thou/mm3 (140-440); RDW Standard Deviation 42.2 fL (36.4-46.3); Red Blood Count 4.77 Miln/mm3 (4.00-5.20); White Blood Count 7.1 Thou/mm3 (3.6-11.0)
[2025-06-17 14:35] LABS: Alanine Aminotransferase 16 U/L (10-49); Albumin, Serum 4.4 gm/dL (3.4-4.8); Albumin/Globulin Ratio 2.1 (1.2-2.2); Alkaline Phosphatase 95 U/L (46-116); Anion Gap 11 (7-16); Aspartate Amino Transferase 23 U/L (0-34); BUN/Creatinine Ratio 11 Ratio (12-20); Bilirubin,Total 0.6 mg/dL (0.3-1.2); Blood Urea Nitrogen 10 mg/dL (9-23); Calcium 9.0 mg/dL (8.3-10.6); Calcium (Corrected) 9.0 mg/dL (8.5-10.1); Carbon Dioxide 23.6 mMol/L (20.0-31.0); Chloride 109 mMol/L (98-107); Creatinine (Component) 0.9 mg/dL (0.6-1.3); Globulin 2.1 gm/dL (2.3-3.5); Glucose 101 mg/dL (74-106); Osmolality,Calculated 285 (275-295); Potassium 4.2 mMol/L (3.4-5.1); Sodium 144 mMol/L (136-145); Total Protein 6.5 gm/dL (5.7-8.2); eGFR > 60 See Note
== END | disposition home or self-care (01) ==
LOC: SCTO 13:33
PROVIDERS: PCP Family Medicine; Referring Provider Nurse Practitioner Family; Visit Provider Nurse Practitioner Family
DX: C50.512 Malignant neoplasm of lower-outer quadrant of left female breast (principal); C50.112 Malignant neoplasm of central portion of left female breast
CPT/HCPCS: 36415; 80053; 85025

== ENCOUNTER 2025-06-25 13:24 | Outpatient (RCR) | payer OTHER, MEDICAID, SELFPAY ==
[2025-06-25 14:23] LABS: Basophils # (Auto) 0.1 Thou/mm3 (0.0-0.2); Basophils % (Auto) 1 % (0-2.5); Eosinophils # (Auto) 0.4 Thou/mm3 (0.0-0.5); Eosinophils % (Auto) 5 % (0-10); Hematocrit 44.6 % (36.0-46.0); Hemoglobin 15.1 g/dL (12.0-16.0); Immature Granulocytes Auto 0.03 Thou/mm3 (0.00-0.00); Lymphocytes # (Auto) 1.4 Thou/mm3 (1.0-4.8); Lymphocytes % (Auto) 19 % (10-50); Mean Corpuscular HGB Conc 33.9 g/dl (31.0-37.0); Mean Corpuscular Hemoglobin 30.4 pg (25.0-35.0); Mean Corpuscular Volume 90 fL (80-100); Monocytes # (Auto) 0.5 Thou/mm3 (0.0-0.8); Monocytes % (Auto) 7 % (0-12); Neutrophils # (Auto) 5.1 Thou/mm3 (1.8-7.7); Neutrophils % (Auto) 67 % (37-80); Nucleated Red Blood Cell # 0.00 Thou/mm3 (0.00-0.00); Nucleated Red Blood Cell % 0 /100 WBC (0); Platelet Count 222 Thou/mm3 (140-440); RDW Standard Deviation 42.5 fL (36.4-46.3); Red Blood Count 4.96 Miln/mm3 (4.00-5.20); White Blood Count 7.6 Thou/mm3 (3.6-11.0)
== END 2025-06-26 23:59 | disposition home or self-care (01) ==
LOC: SCTC 13:24
PROVIDERS: PCP Family Medicine; Referring Provider Family Medicine; Visit Provider Nurse Practitioner Family
DX: D75.1 Secondary polycythemia (principal); Z87.19 Personal history of other diseases of the digestive system; Z85.3 Personal history of malignant neoplasm of breast; Z90.12 Acquired absence of left breast and nipple; Z92.3 Personal history of irradiation; Z92.21 Personal history of antineoplastic chemotherapy
CPT/HCPCS: 36415; 85025; 99195; 99212; G0463